=== PATIENT | female | born 1950 | race Caucasian/White ===

== ENCOUNTER 2019-07-06 09:17 | Emergency (ER) | payer MEDICARE, SELFPAY ==
[2019-07-06 09:20] VITALS: BP 92/63; PULSE 92; RESP 18; TEMP 36.9; O2SAT 96; BMI 30.2
[2019-07-06 09:33] VITALS: PULSE 90
--- NOTE | 2019-07-06 09:33 | ED_ITS ---
HPI - Extremity Injury (Upper) General Chief Complaint: Extremity Injury, Upper Stated Complaint: left shoulder/arm swelling/extreme pain fell x7day Time Seen by Provider: 07/06/19 09:20 Source: patient and family Mode of arrival: Ambulatory Limitations: no limitations History of Present Illness HPI narrative: 69-year-old female nonsmoker with history of hypertension and chronic lower extremity pain presents with a family friend after suffering a mechanical fall 1 week ago which she fell onto her left shoulder. Since then she has had increasing pain, particularly with any range of motion and now swelling of the remainder of her arm. She denies any numbness or tingling. She has limited range of motion secondary to pain. MD complaint: injury to: left Onset (ago): day(s) Other injuries: none Handedness: right Place: home Severity: moderate Related Data Home Medications Medication Instructions Recorded Confirmed alprazolam 0.25 mg PO BID 07/06/19 escitalopram oxalate 10 mg PO DAILY 07/06/19 07/06/19 lisinopril 10 mg PO DAILY 07/06/19 07/06/19 oxycodone 10 mg PO PRN PRN 07/06/19 07/06/19 pantoprazole 20 mg PO DAILY 07/06/19 07/06/19 Review of Systems Constitutional Constitutional: Denies chills, Denies fatigue, Denies fever(s), Denies frequent falls, Denies lethargy and Denies weakness Eyes Eyes: Denies change in vision, Denies eye discharge, Denies irritation and Denies loss of vision ENT Ears, Nose, Mouth, and Throat: Denies change in voice, Denies dizziness, Denies neck pain, Denies sore throat and Denies throat swelling Cardiovascular Cardiovascular: Denies chest pain, Denies irregular heart rhythm, Denies lightheadedness, Denies palpitations, Denies dyspnea, Denies dyspnea on exertion and Denies orthopnea Respiratory Respiratory: Denies cough, Denies dyspnea, Denies dyspnea on exertion and Denies wheezing Gastrointestinal Gastrointestinal: Denies abdominal pain, Denies change in bowel habits, Denies diarrhea, Denies nausea and Denies vomiting Genitourinary Genitourinary: Denies hematuria, Denies flank pain, Denies urinary incontinence and Denies urinary urgency Musculoskeletal Musculoskeletal: Denies back pain, Reports joint swelling, Reports limited range of motion, Denies muscle weakness, Denies neck pain, Denies numbness and Denies tingling Integumentary/Breasts Skin/Breast: Denies pruritus, Denies erythema, Denies rash and Denies wounds Neurologic Neurologic: Denies behavioral changes, Denies confusion, Denies dizziness, Denies frequent falls, Denies loss of vision, Denies numbness, Denies tingling and Denies weakness Psychiatric Psychiatric: Denies anxiety, Denies behavioral changes, Denies confusion, Denies depression, Denies homicidal ideation and Denies suicidal ideation Endocrine Endocrine: Denies fatigue, Denies flushing and Denies palpitations Hematologic/Lymphatic Hematologic/Lymphatic: Denies easy bruising Allergic/Immunologic Allergic/Immunologic: Denies urticaria, Denies throat swelling and Denies wheezing PFSH Social History Smoking Status: Never smoker Social History Smoking Status: Never smoker Exam Narrative Exam Narrative: GENERAL: [68] year old patient appears stated age. Well- nourished, well-developed patient, in mild distress. HEAD: Atraumatic. Normocephalic. EYES: Pupils equal round and reactive. Extraocular motions intact. No scleral icterus. No injection or drainage. ENT: Nose without bleeding, purulent drainage. Throat without erythema, tonsillar hypertrophy or exudate. Airway patent. NECK: Trachea midline. Non tender CARDIOVASCULAR: Regular rate and rhythm without murmurs, gallops, or rubs. RESPIRATORY: Clear to auscultation. Breath sounds equal bilaterally. No wheezes, rales, or rhonchi. GASTROINTESTINAL: Abdomen soft, non-tender, nondistended. EXTREMITIES: Decreased range of motion of left upper extremity due to pain, th ere is noted swelling and some ecchymosis along the forearm and wrist but no tenderness to palpation, this is presumably gravity fed from her proximal injury. There is no numbness, tingling or weakness. BACK: Nontender without deformity or crepitance. No flank tenderness. NEURO: AOx3. SKIN: No rash or erythema of visible areas Initial Vital Signs Initial Vital Signs: Vital Signs Temperature 98.4 F 07/06/19 09:20 Pulse Rate 92 H 07/06/19 09:20 Respiratory Rate 18 07/06/19 09:20 Blood Pressure 92/63 07/06/19 09:20 Pulse Oximetry 96 07/06/19 09:20 Procedures Orthopedic Splinting/Casting Injury #1: Side: left Upper Extremity Immobilizer: sling/shoulder immobilizer Post splinting neuro exam: intact Post splinting vascular exam: intact Placed by: Nursing Course Orders Ordered: ED Orders 07/06/19 09:44 XR shoulder RT min 2V Stat Consultations Consultation #1: Andrey to Dr. Kaufman, he has reviewed the images and recommend sling with follow-up Vital Signs Vital signs: Vital Signs - 8 hr 07/06/19 09:20 07/06/19 09:33 07/06/19 11:21 Temperature 98.4 F Pulse Rate 92 H 67 Pulse Rate [Left Radial] 90 Respiratory Rate 18 16 Blood Pressure 92/63 Blood Pressure [Right Arm] 121/70 Pulse Oximetry 96 100 MDM - Extremity Injury (Upper) Imaging Data SHoulder Xray: Radiologist's impression: [address] [address] XRay Report Signed Patient: Fred Rabago [facility]#: [id number] : 8Acct:[id number] Age/Sex: 69 / FDate of Service: 07/06/19 Loc: ED Accession Number: [id number] Procedure: XR shoulder RT min 2V Ordering Provider: Yves Lo D.O. PROCEDURE: XR SHOULDER RT MIN 2V INDICATIONS: fall with shoulder pain TECHNIQUE: 2 views of the shoulder were acquired. COMPARISON: None. FINDINGS: Bones: Comminuted humeral head and neck fracture with mild impaction. Humeral head appears anatomically seated. No suspicious bony lesions. Visualized ribs appear intact. Soft tissues: No suspicious soft tissue calcifications. IMPRESSION: Comminuted humeral head and neck fracture. Dictated by: Nichol Perez M.D. on 07/06/2019 at 10:29 Approved by: Nichol Perez M.D. on 07/06/2019 at 10:30 Discharge Plan Departure Patient Disposition: Home Clinical Impression: Fracture of humerus Qualifiers: Encounter type: initial encounter Humerus Location: proximal Fracture type: closed Fracture alignment: displaced Laterality: left Instructions: DI for Fracture Activity Restrictions/Additional Instructions: *You have been diagnosed with [comminuted proximal humerus fracture] *What to do: *Take medications as directed *Follow up with [facility] in 2-3 days, call for an appointment. Let them know you were seen in the Emergency Department and that we ask that you be seen in follow up *Return to ER if you should have any new, worsening or concerning symptoms Prescriptions: No Action pantoprazole 20 mg tablet,delayed release (DR/EC) 20 mg PO DAILY RF: 0 alprazolam 0.25 mg tablet 0.25 mg PO BID RF: 0 lisinopril 10 mg tablet 10 mg PO DAILY RF: 0 escitalopram oxalate 10 mg tablet 10 mg PO DAILY RF: 0 oxycodone 10 mg tablet 10 mg PO PRN PRN (Reason: pain) RF: 0 Referrals: Tree Nuñez MD [Primary Care Provider] - Patrick Kaufman MD [Physician] -
--- NOTE | 2019-07-06 09:44 | DI.RAD.S_ITS ---
PROCEDURE: XR SHOULDER RT MIN 2V INDICATIONS: fall with shoulder pain TECHNIQUE: 2 views of the shoulder were acquired. COMPARISON: None. FINDINGS: Bones: Comminuted humeral head and neck fracture with mild impaction. Humeral head appears anatomically seated. No suspicious bony lesions. Visualized ribs appear intact. Soft tissues: No suspicious soft tissue calcifications. IMPRESSION: Comminuted humeral head and neck fracture. Dictated by: Nichol Perez M.D. on 07/06/2019 at 10:29 Approved by: Nichol Perez M.D. on 07/06/2019 at 10:30
[2019-07-06 11:21] VITALS: BP 121/70; PULSE 67; RESP 16; O2SAT 100
== END 2019-07-06 11:53 | disposition home or self-care (01) ==
PROVIDERS: Emergency Provider Emergency Medicine; PCP Internal Medicine
DX: S42.292A Other displaced fracture of upper end of left humerus, initial encounter for closed fracture (principal); W18.30XA Fall on same level, unspecified, initial encounter
CPT/HCPCS: 73030; 99282; 99283

== ENCOUNTER → 2020-05-30 12:07 | Outpatient (CLI) | payer MEDICARE, SELFPAY ==
--- NOTE | 2020-05-30 | DI.US.S_ITS ---
PROCEDURE: US PELVIC COMPLETE INDICATIONS: BRCA 2 POSITIVE; BLOATING; FAMILY HX OVARIAN CANCER TECHNIQUE: Real-time scanning was performed of the pelvic organs, with image documentation. Additional endovaginal scanning was necessary due to incomplete visualization of the adnexal and endometrial structures by transabdominal scanning. COMPARISON: [facility], , US ABDOMEN COMPLETE, 05/30/2020, 12:34. FINDINGS: Transabdominal scanning: No pathologic free abdominal or pelvic fluid. Endovaginal scanning: Uterus: Uterus is normal in size at 4.8 x 3 x 2.4 cm. The endometrium measures 5 mm in combined thickness. Tiny atrial cyst. Ovaries: Ovaries are not seen transabdominally or transvaginally. IMPRESSION: 1. Ovaries are not identified. -if clinically indicated further evaluation with MRI pelvis or CT could be performed. 2. Endometrial thickness measures 5 mm and is at the upper limits of normal in this postmenopausal patient. 3. No free fluid seen. Dictated by: Tavares Hobson M.D. on 05/30/2020 at 13:55 Approved by: Tavares Hobson M.D. on 05/30/2020 at 13:58
--- NOTE | 2020-05-30 | DI.US.S_ITS ---
PROCEDURE: US ABDOMEN COMPLETE INDICATIONS: BRCA 2 POSITIVE; BLOATING TECHNIQUE: Real-time scanning was performed of the abdominal and retroperitoneal organs, with image documentation. COMPARISON: [facility], US, US PELVIC COMPLETE, 05/30/2020, 12:53. FINDINGS: Liver: Liver is normal in size and homogeneous in echotexture. Gallbladder: Mildly distended. Non mobile calculus in the gallbladder neck measuring 4 mm. Normal gallbladder wall thickness. No pericholecystic fluid. Negative sonographic Crockett's sign. Biliary ducts: Intrahepatic bile ducts are non-dilated. Extrahepatic bile duct caliber measures 7-8 mm. Normal is 6-7 mm or less in diameter, or 10 mm or less post-cholecystectomy. Pancreas: Visualized portions of the pancreas are sonographically normal. Spleen: Spleen is normal in size and homogeneous in echotexture. Kidneys: Kidneys are normal in size and echotexture. Right kidney measures 10 cm long; left kidney measures 10.6 cm long. No hydronephrosis or nephrolithiasis. No solid masses. Aorta: Visualized aorta is normal in caliber at less than 3 cm. Distal aorta is not well seen. Iliacs: Proximal common iliac arteries are normal in caliber at less than 2.5 cm. IVC: Intrahepatic inferior vena cava is patent. Miscellaneous: No free abdominal fluid. IMPRESSION: 1. Nonmobile gallstone at the gallbladder neck. Mild gallbladder dilatation. No pericholecystic fluid or secondary signs of acute inflammation. -correlate for right upper quadrant pain. 2. No ascites. 3. No hydronephrosis. Dictated by: Tavares Hobson M.D. on 05/30/2020 at 13:51 Approved by: Tavares Hobson M.D. on 05/30/2020 at 13:55
--- NOTE | 2020-05-30 13:47 | DI.MRI.S_ITS ---
Patient Name: ADAM BRYANT date: 1950 Sex: F Attending Physician: Gilberto Indications: Date: 05/30/2020 13:54 At the request of: JOE CRAIG Procedure: MR breast BI wo/w con SCREENING BREAST MRI OF BOTH BREASTS- POST LUMPECTOMY: 05/30/2020 CLINICAL: Routine screening. Comparison is made to exams dated: 09/02/2019 mammogram and 09/01/2018 mammogram - [facility]. Gadolinium contrast calibrated to patient weight was injected. MRI images were obtained. Bilateral background breast enhancement is minimal. PROCEDURE: MR BREAST BI WO/W CON INDICATIONS: BRCA 2 positive; Bloating; Fh ovarian cancer TECHNIQUE: The patient was placed prone in a dedicated breast imaging coil. Precontrast axial STIR and 3D FLASH without fat saturation sequences were obtained. Both before and after bolus injection of contrast, sequential 1-minute axial 3D FLASH with fat saturation sequences for 3 time points, with subtraction images and maximum intensity projections (MIP?s) generated. Delayed sagittal FLASH images with fat saturation were also obtained. Computer-aided detection, including computer algorithm analysis of MRI image data for lesion detection and characterization, pharmacokinetic analysis, with further physician review for interpretation, was performed. COMPARISON: Outside mammograms dated 09/02/2019 and 09/01/2018, performed at the [facility]. FINDINGS: Image quality: Excellent. There is minimal background parenchymal enhancement. Continued Report - Page 2 of 3 Patient Name: ADAM BRYANT date: 1950 Sex: F Attending Physician: Gilberto Indications: Date: 05/30/2020 13:54 At the request of: JOE CRAIG Procedure: MR breast BI wo/w con Right breast: A focus of metallic artifact is seen in the upper outer quadrant of the right breast corresponding to the surgical clip seen on prior mammograms from 09/02/2019. No suspicious mass or abnormal enhancement is seen in the right breast. A few right axillary lymph nodes are noted that are not significantly enlarged. Left breast: Hypointense signal is seen in the left breast in the retroareolar region and the inferior breast corresponding to areas of coarse benign calcification seen on the prior mammograms from 09/02/2019. No suspicious mass or abnormal enhancement is seen in the left breast. There is no significant left axillary lymphadenopathy. Miscellaneous: The included portions of the anterior chest and anterior upper abdomen demonstrate no acute abnormality. IMPRESSION: BENIGN No abnormal mass or suspicious contrast enhancement is seen in either breast. Recommend continued screening. BIRADS 2 COMMENT: The imaging literature indicates that a negative contrast breast MRI examination has a high sensitivity and a moderate specificity for detecting and excluding invasive carcinomas to a detection threshold of 3-5 mm; nonetheless, appropriate clinical and mammographic follow- up are recommended. MRI is not sensitive for detecting DCIS (ductal carcinoma in situ) and may not detect large invasive neoplasms that show only minimal enhancement such as mucinous carcinoma. If there are suspicious calcifications or clinically worrisome palpable masses, then biopsy should still be considered. Invasive neoplasms can be hidden by co-existent and benign enhancement caused by mastitis, hormone therapy effects, radiation therapy, , and recent biopsy or surgery. False positive examinations can occur in a number of circumstances, including breasts that have recently been subject to invasive procedures and those that contain atypical ductal hyperplasia, hormonally stimulated glandular tissue, fat necrosis, or radial scars. A 1 year screening mammogram is recommended. This exam was interpreted at Station ID: [id number]. Electronically Signed By: Cullen gallego/kyle:05/30/2020 17:42:12 Continued Report - Page 3 of 3 Patient Name: ADAM BRYANT date: 1950 Sex: F Attending Physician: Gilberto Indications: Date: 05/30/2020 13:54 At the request of: JOE CRAIG Procedure: MR breast BI wo/w con
== END ==
PROVIDERS: PCP Internal Medicine; Referring Provider Family Medicine; Visit Provider Physician Assistant
DX: Z12.39 Encounter for other screening for malignant neoplasm of breast (principal); Z15.01 Genetic susceptibility to malignant neoplasm of breast; R14.0 Abdominal distension (gaseous); K80.20 Calculus of gallbladder without cholecystitis without obstruction; K82.8 Other specified diseases of gallbladder; Z80.41 Family history of malignant neoplasm of ovary
CPT/HCPCS: 76700; 76830; 76856; 77049; A9579

== ENCOUNTER → 2020-06-23 07:26 | Outpatient (CLI) | payer MEDICARE, SELFPAY ==
--- NOTE | 2020-06-23 | DI.NM.S_ITS ---
PROCEDURE: NM HIDA WITH CCK PHARMACEUTICAL: 4.50 mCi Tc-99m mebrofenin IV; 0.7 mcg CCK IV. INDICATIONS: Unspecified abdominal pain TECHNIQUE: Following intravenous administration of Tc-99m mebrofenin, sequential anterior abdominal images were obtained. To evaluate the contractile response of the gallbladder in response to Cholecystokinin (CCK), sincalide (0.02 ?g/kg) was administered by slow intravenous infusion approximately 60 minutes after the administration of the radiopharmaceutical. Sequential imaging was continued for 30 minutes after the start of CCK infusion. Gallbladder ejection fraction was calculated. COMPARISON: None. FINDINGS: Biliary scan: There is normal tracer uptake and excretion by the liver. There is normal visualization of the intrahepatic ducts, common bile duct, and gallbladder. There is normal tracer transit into the duodenum. CCK stimulation: There is normal contractile response of the gallbladder to CCK infusion. The calculated gallbladder ejection fraction is 85 percent; normal values are above 35%. It has been shown that any patient abdominal pain after CCK administration is related to the rate of CCK injection, rather than to any underlying gallbladder disease (Clinical Nuclear Medicine 2012; 37: 63-70. Journal of Nuclear Medicine 2014; 55: 1-9). IMPRESSION: No evidence of acute cholecystitis. Patent common bile duct. Normal gallbladder ejection fraction. Dictated by: Catracho Greenberg M.D. on 06/23/2020 at 10:34 Approved by: Catracho Greenberg M.D. on 06/23/2020 at 10:46
--- NOTE | 2020-06-23 | DI.CT.S_ITS ---
PROCEDURE: CT PEL WO CON INDICATIONS: Unspecified abdominal pain TECHNIQUE: Noncontrast 3 mm axial sections acquired through the bony pelvis, with coronal and sagittal reformatting. COMPARISON: [facility], , PELVIC COMPLETE, 05/30/2020, 12:53. FINDINGS: Image quality: Excellent. Bones: There are superior and inferior posterior acetabular fixation screws and plate as well as left hip arthroplasty components. There is dystrophic ossification surrounding the posterior aspect of the greater trochanter and to lesser extent anterior to the superolateral acetabular rim. Moderate degenerative changes in the right femoroacetabular joint including acetabular spurring and slight over coverage of the femoral head. Degenerative changes in the facet joints of the lumbar spine with vacuum phenomenon. No suspicious bone lesions to suggest metastatic disease. Soft tissues: The lower aspect of both kidneys is seen and there is a punctate nonobstructing calcification in the lower pole of the right. There is a partially imaged small bowel anastomosis in the central low abdomen. Unenhanced appearance of small and large bowel loops appears otherwise normal. There is a normal appendix. The unenhanced appearance of the right ovary and the structure believed to be the left ovary appears grossly normal without mass. The uterus is present and has a normal unenhanced CT appearance. Urinary bladder is only partially filled and grossly normal given beam hardening artifact from adjacent left hip arthroplasty components. IMPRESSION: 1. No suspicious bone lesions to suggest metastatic disease. 2. Expected findings of left hip arthroplasty and posterior acetabular fixation with slight adjacent dystrophic calcification. 3. Both ovaries are identified and have a normal unenhanced appearance. 4. Nonobstructing right lower pole punctate intrarenal calcification. Dictated by: Dennise Ortiz M.D. on 06/23/2020 at 10:48 Approved by: Dennise Ortiz M.D. on 06/23/2020 at 11:01
== END ==
PROVIDERS: PCP Internal Medicine; Referring Provider Internal Medicine; Visit Provider Physician Assistant
DX: R10.9 Unspecified abdominal pain (principal); R14.0 Abdominal distension (gaseous); K80.20 Calculus of gallbladder without cholecystitis without obstruction; N20.0 Calculus of kidney; Z84.81 Family history of carrier of genetic disease; Z85.3 Personal history of malignant neoplasm of breast; Z96.642 Presence of left artificial hip joint
CPT/HCPCS: 72192; 78227; A9537; J2805

== ENCOUNTER → 2020-08-30 10:40 | Outpatient (CLI) | payer MEDICARE, SELFPAY ==
[2020-08-30 11:10] LABS: COVID19 -Nasal RAPID Negative (Negative)
== END ==
PROVIDERS: PCP Internal Medicine; Visit Provider Obstetrics & Gynecology
DX: Z01.818 Encounter for other preprocedural examination (principal)
CPT/HCPCS: 87635

== ENCOUNTER 2020-08-31 06:41 | Day surgery (SDC) | payer MEDICARE, SELFPAY ==
--- NOTE | 2020-08-31 | PATH_ITS ---
[facility] Accession Number: [id number] . 01 Material submitted: . fallopian tube - BILATERAL TUBES AND OVARIES . 01 Clinical history: . SDC BRCA POSITIVE, HISTORY OF BREAST CANCER PLEASE USE SEE-FIM PROTOCALL . 02 Diagnosis: Bilateral Tubes and Ovaries, Laparoscopic Salpingo-oophorectomies (Left Fallopian Tube and Ovary 4 grams; Right Fallopian Tube and Ovary 4 grams): Ovaries with corpora albicantia; negative for atypia or malignancy. Fallopian tubes with benign paratubal cysts and otherwise no significant histomorphologic abnormality; negative for epithelial atypia or malignancy. No tubal fimbriated tissue identified (entire specimen submitted). [facility] 09/04/2020 1501 Local . 02 Comment: Results (absence of fallopian tube fimbria, specimen entirely submitted) discussed with Dr. Kamara's nurse, Ly, on 09-04-20 at approximately 2:42 p.m. . 02 Electronically signed: . Staci Noland MD, Pathologist NPI- [id number] . 01 Gross description: . Received in formalin, labeled bilateral tubes and ovaries, and consists of two ovaries with attached fallopian tubes weighing 4 grams each. The ovaries average 2.0 x 1.2 x 0.8 cm and display at del[place] cruz smooth external surface. Sectioning reveals a dela cruz ovarian stroma. The fallopian tubes measure 3.0 cm in length by 0.5 cm in diameter and 4.0 cm in length by 0.3 cm in diameter. The serosa is dela cruz-pink and smooth. Sectioning reveals a dela cruz mucosa and a stellate lumen measuring 0.2 cm in diameter. The specimen is entirely submitted. . A1-A3 - ovary. A4 - attached fallopian tube. A5 - attached mesovarium. A6-A7 - other ovary. A8-A10 - attached fallopian tube. A11 - attached mesovarium. (EA:[id number]) /MRV 09/01/2020 1354 Local . 02 Pathologist provided ICD-10: Z80.41 . 02 CPT . 287478 Performed at: 01 [facility] [address] [address], [place], [place] [id number] MD Deni Murphy MD Phone: [phone] Performed at: [address] [facility] [id number] [place] [id number] MD Alexa Kirkland MD Phone: [phone]
[2020-08-31 07:22] VITALS: BP 117/66; PULSE 70; RESP 16; TEMP 36.9; O2SAT 100; BMI 32.6
[2020-08-31 07:30] VITALS: BMI 32.6
[2020-08-31] MEDS: ACETAMINOPHEN 325 MG TABLET 975 MG PO (07:39)
[2020-08-31] MEDS: LACTATED RINGERS 1,000 ML 42 ML IV (07:40)
--- NOTE | 2020-08-31 07:50 | PM.HP.1 ---
History of Present Illness History of Present Illness Date Patient Seen: 08/31/20 Time Patient Seen: 07:50 Chief complaint: SDC Narrative: Patient is a 70-year-old who is BRCA 2 positive. She presents for laparoscopic BSO Patient History Medical History (Updated 08/30/20 @ 15:11 by Ramona Martinez RN) Breast cancer (~1995) Chronic back pain (~2013) Chronic pain Herpes (~1979) Sleep apnea (~2015) Surgical History (Updated 08/30/20 @ 15:11 by Ramona Martinez RN) Anesthesia History of breast surgery (~1995) History of hip replacement (~2013) Family & Social History Family History (Updated 07/18/20 @ 21:33 by Opal Hunter) Father History of heart disease Hyperlipidemia Hypertension Mother Breast cancer Diabetes mellitus History of heart disease Hyperlipidemia Hypertension Social History: household members significant other Tobacco & Substance use: Smoking Status Former smoker alcohol intake never alcohol intake frequency other Substance Use Type does not use Meds Home Medications and Allergies Home Medications Medication Instructions Recorded Confirmed Type alprazolam 0.25 mg PO BID 07/06/19 08/31/20 History lisinopril 10 mg PO DAILY 07/06/19 08/31/20 History oxycodone 10 mg PO PRN PRN 07/06/19 08/31/20 History pantoprazole 20 mg PO DAILY 07/06/19 08/31/20 History aspirin 81 mg tablet,delayed 81 mg PO DAILY 07/18/20 08/31/20 History release cholecalciferol (vitamin D3) PO 07/18/20 07/18/20 History multivitamin 1 tab PO DAILY 07/18/20 08/31/20 History Allergies Allergy/AdvReac Type Severity Reaction Status Date / Time hydromorphone [From Dilaudid] Allergy Verified 07/18/20 09:12 Exam Vital Signs (past 8 hours): - 08/31/20 07:22 Temperature 98.4 F Pulse Rate 70 Respiratory Rate 16 Blood Pressure 117/66 Pulse Oximetry 100 Oxygen Delivery Method Room Air Narrative Exam Narrative: HEENT: No thyromegaly, no anterior cervical or supraclavicular lymphadenopathy. Lungs:Clear to auscultation bilaterally, no wheezes. Cardiovascular: Regular rate and rhythm, no murmurs, rubs, or gallops. Abdomen: No scars. No hepatosplenomegaly. No masses palpable. External genitalia: Normal Vagina: Normal Cervix: Normal Bimanual exam: 6 Week size uterus. Mobile. No adnexal masses or tenderness Rectal: No masses.
--- NOTE | 2020-08-31 08:01 | SUR.OPER ---
Lithotomy on padded OR bed, head on pillow, arms secured on padded arm boards at <90 degrees abduction. Legs secured in padded yellow fins stirrups.
[2020-08-31] MEDS: BUPIVACAINE 0.5% W/ EPI (PF) 30 ML VIAL INJ (08:59)
[2020-08-31 09:10] VITALS: BP 124/71; PULSE 74; RESP 14; TEMP 36.9; O2SAT 94
[2020-08-31 09:15] VITALS: BP 100/39; PULSE 78; RESP 15; O2SAT 97
[2020-08-31 09:22] VITALS: BP 116/64; PULSE 66; RESP 16; O2SAT 96
[2020-08-31 09:25] VITALS: BP 111/72; PULSE 65; RESP 16; O2SAT 97
[2020-08-31 09:34] VITALS: BP 120/41; PULSE 65; RESP 14; TEMP 36.9; O2SAT 100
--- NOTE | 2020-08-31 09:38 | P.OP_ITS ---
Operative Date/Time/Diagnoses Date of procedure: 08/31/20 Time of procedure: 09:38 Pre-op diagnosis: History of breast cancer BRCA 2 positive Post-op diagnosis: same Procedure & Clinicians Procedure: Procedures Operation Date: 08/31/20 07:45 Actual Procedures Side Surgeon p Laparoscopic Salpingo-oophorectomies Bilateral Yu Kamara MD Indications: History of breast cancer BRCA 2 positive Surgeon: Yu Kamara Anesthesia Type: General Operative Notes Findings: Six week size anteverted uterus Bilateral paratubal cysts Normal ovaries Normal liver and appendix Closure Type: primary Specimen(s): left tube & ovary and right tube & ovary Estimated blood loss (mL): 20 Blood products transfused: none Procedure in detail: After informed consent was obtained, the patient was taken to the operating room where she was placed in the dorsal supine position. After adequate general endotracheal anesthesia was achieved, she was placed in the dorsal lithotomy position, and prepped and draped in the usual sterile fashion. A moistened sponge stick was placed into the vagina. Attention was turned to the abdomen where 6 cc of 0.5% Marcaine with epinephrine were injected in the umbilical fold. The Veress needle was placed into the peritoneal cavity, and its placement confirmed by aspiration and drop test. The abdominal cavity was insufflated with 3.0 L of CO2. The Veress needle was removed, and a 5 mm trocar was placed without difficulty. Initial inspection of the pelvis and abdomen revealed the findings noted above. Two other 5 mm incisions were made 4 cm lateral to the midline, after 6 cc of 0.5% Marcaine with epinephrine were i njected. 5 mm trocars were placed under direct visualization. The right tube and ovary were grasped with an atraumatic grasper. With the PlasmaKinetic set at 40 w, the infundibulopelvic ligament was cauterized and cut 3 cm away from the ovary. Hemostasis was achieved. The broad ligament and utero-ovarian ligaments were cauterized and cut. The tube was amputated at the cornua of the uterus. Hemostasis was achieved. There were paratubal cysts on the right which were also amputated using the PlasmaKinetic. All of this was placed into the anterior cul-de-sac. This was all repeated on the left side. Hemostasis was achieved. 6 cc of 0.5% Marcaine with epinephrine were injected through the previous incision above the pubic symphysis. A 10 mm incision was made. A 10 mm trocar was placed under direct visualization. The small endobag was placed through the suprapubic trocar, and the tubes and ovaries and paratubal cysts were placed into the bag. The trocar was removed. The bag was brought up through the incision. The pelvis was copiously irrigated with warm normal saline. There was no bleeding noted. The appendix and liver had been visualized and were normal as well. The instruments were removed from the abdomen. The CO2 was allowed to escape. The trocars were removed. The suprapubic incision was closed on the fascia with 0 Vicryl with the [id number] suture. All of the incisions were closed with 4 0 Biosyn in a subcuticular fashion. Steri-Strips, and Allevyn dressings were placed. The moistened sponge stick was removed from the vagina. Sponge, lap, and instrument counts were correct x2. The patient tolerated the procedure well, and was taken to PACU in stable condition. Complications: none Post-operative Condition: stable Disposition: PACU Plan for aftercare: Home after recovery
--- NOTE | 2020-08-31 09:38 | PM.PREOP ---
Pre-operative Note COVID-19 COVID-19 status: Negative Result date/Date tested (Pos, Neg/Pending): 08/30/20 Interval Note History & Physical reviewed/Exam performed by Physician: Yes Changes to H&P: No H&P completed within 30 days and has changed as indicated here:: 08/31/20
--- NOTE | 2020-08-31 10:19 | SUR.PHASEII ---
Dr. Kamara stated to have patient call her office if she is not able to urinate by 1300. Patient made aware and states she will do that.
== END 2020-08-31 09:56 | disposition home or self-care (01) ==
PROVIDERS: PCP Internal Medicine; Referring Provider Internal Medicine; Visit Provider Obstetrics & Gynecology
PROC: 0UT24ZZ Resection of Bilateral Ovaries, Percutaneous Endoscopic Approach (ICD-10-PCS; CPT 58661; principal; 2020-08-31 07:45)
DX: Z40.02 Encounter for prophylactic removal of ovary(s) (principal); Z85.3 Personal history of malignant neoplasm of breast; Z15.02 Genetic susceptibility to malignant neoplasm of ovary; N83.8 Other noninflammatory disorders of ovary, fallopian tube and broad ligament; I10 Essential (primary) hypertension; G47.33 Obstructive sleep apnea (adult) (pediatric)
CPT/HCPCS: 58661; J1100; J1885; J2250; J2405; J2704; J3010

== ENCOUNTER → 2020-09-14 11:16 | Outpatient (CLI) | payer MEDICARE, SELFPAY ==
--- NOTE | 2020-09-14 | DI.MG.S_ITS ---
BILATERAL DIGITAL SCREENING MAMMOGRAM 3D/2D WITH CAD: 09/14/2020 CLINICAL: Routine screening. Personal history of left breast cancer. Family history of breast cancer. Comparison is made to exams dated: 05/30/2020 breast MRI - [facility], 09/02/2019 mammogram, 09/01/2018 mammogram, and 09/24/2017 mammogram - [facility]. The tissue of both breasts is predominantly fatty. Current study was also evaluated with a Computer Aided Detection (CAD) system. There are benign calcifications in the left breast. There also are benign post operative findings in both breasts. No significant masses, calcifications, or other findings are seen in either breast. There has been no significant interval change. IMPRESSION: BENIGN There is no mammographic evidence of malignancy. A 1 year screening mammogram is recommended. This exam was interpreted at Station ID: [id number]. NOTE: For mammograms, a report in lay terms will be sent to the patient. Approximately 15% of breast malignancies will not be visualized mammographically. In the management of a palpable breast mass, a negative mammogram must not discourage biopsy of a clinically suspicious lesion. Electronically Signed By: Duncan Mims acr/penrad:09/14/2020 12:15:38 letter sent: Normal Exam ACR BI-RADS Category 2: Benign Finding(s) 3342F
== END ==
PROVIDERS: PCP Internal Medicine; Referring Provider Internal Medicine; Visit Provider Internal Medicine
DX: Z12.31 Encounter for screening mammogram for malignant neoplasm of breast (principal); Z85.3 Personal history of malignant neoplasm of breast; Z80.3 Family history of malignant neoplasm of breast
CPT/HCPCS: 77063; 77067

== ENCOUNTER 2021-05-20 08:49 | Emergency (ER) | payer MEDICARE, SELFPAY ==
[2021-05-20 08:55] VITALS: BP 118/61; PULSE 62; RESP 18; TEMP 36.8; O2SAT 98; BMI 28.3
--- NOTE | 2021-05-20 09:06 | DI.RAD.S_ITS ---
PROCEDURE: XR KNEE RT 3V INDICATIONS: Right knee pain/swelling TECHNIQUE: 3 views of the knee were acquired. COMPARISON: None. FINDINGS: Bones: No fractures or dislocations. No suspicious bony lesions. There is mild medial femorotibial joint space narrowing seen, with associated remodeling changes including subchondral sclerosis and osteophyte formation along the jointline. On the sunrise view, there is moderate to severe patellofemoral joint space narrowing seen. Osteophyte formation can be seen along the margins of the patella. Soft tissues: There is mild joint effusion. No suspicious soft tissue calcifications. IMPRESSION: There are osteoarthritic degenerative changes seen, which are worst involving lateral patellofemoral compartment. Dictated by: Wayne Horta M.D. on 05/20/2021 at 8:36 Approved by: Wayne Horta M.D. on 05/20/2021 at 8:37
--- NOTE | 2021-05-20 09:06 | ED.LOWEXIN ---
HPI - Extremity Injury (Lower) General Chief Complaint: Extremity Injury, Lower Stated Complaint: RIGHT KNEE PAIN Time Seen by Provider: 05/20/21 09:00 Source: patient and family Mode of arrival: Wheelchair Limitations: no limitations History of Present Illness HPI Narrative: The patient has pain and swelling in the right knee. Discomfort has been evolving over the last 2 weeks. She is unaware of trauma. She is ambulatory. She has fibromyalgia. She has taken four oxycodone since 4:00 a.m. she also took ibuprofen 100 mg. She has history of arthritis. She has no history of prior issues with the right knee. Related Data Home Medications Medication Instructions Recorded Confirmed alprazolam 0.25 mg tablet 0.25 mg PO BID 07/06/19 08/31/20 lisinopril 10 mg tablet 10 mg PO DAILY 07/06/19 08/31/20 oxycodone 10 mg tablet 10 mg PO PRN PRN 07/06/19 08/31/20 pantoprazole 20 mg tablet,delayed 20 mg PO DAILY 07/06/19 08/31/20 release aspirin 81 mg tablet,delayed 81 mg PO DAILY 07/18/20 08/31/20 release (Adult Aspirin Regimen) cholecalciferol (vitamin D3) PO 07/18/20 07/18/20 multivitamin 1 tab PO DAILY 07/18/20 08/31/20 Previous Rx's Medication Instructions Recorded oxycodone-acetaminophen 5 mg-325 1 tab PO Q4-6H PRN #14 tab 08/31/20 mg tablet (Percocet) Allergies Allergy/AdvReac Type Severity Reaction Status Date / Time hydromorphone [From Dilaudid] Allergy Verified 07/18/20 09:12 Review of Systems Constitutional Constitutional: Reports as per HPI and Denies fever(s) Comments: No recent illness Musculoskeletal Musculoskeletal: Denies numbness, Denies stiffness and Denies tingling Comments: Right knee pain and swelling is noted HPI Neurologic Neurologic: Denies numbness and Denies tingling Comments: No numbness or weakness Patient History Medical History Breast cancer (~1995) Chronic back pain (~2013) Chronic pain Herpes (~1979) Sleep apnea (~2015) Surgical History Anesthesia History of breast surgery (~1995) History of hip replacement (~2013) Family History Father History of heart disease Hyperlipidemia Hypertension Mother Breast cancer Diabetes mellitus History of heart disease Hyperlipidemia Hypertension Social History household members: significant other Smoking Status: Former smoker alcohol intake: never Smoking Status: Former smoker alcohol intake frequency: other Substance Use Type: does not use Exam Initial Vital Signs Initial Vital Signs: Vital Signs Temperature 98.3 F 05/20/21 08:55 Pulse Rate 62 05/20/21 08:55 Respiratory Rate 18 05/20/21 08:55 Blood Pressure 118/61 05/20/21 08:55 Pulse Oximetry 98 05/20/21 08:55 Const General: cooperative and comfortable Skin General: no rashes or lesions noted Neuro General: patient alert, patient awake, patient oriented x3 and no focal motor deficits Extrem Other: No right hip tenderness. Range of motion 0 to 100? in the right knee. Moderate effusion. No erythema or warmth. Anterior drawer sign is negative. No medial or lateral tenderness or laxity. Tenderness is primarily subpatellar nature. No right calf tenderness. The right dorsalis pedis pulse is normal. Psych Appearance: grossly normal Procedures Orthopedic Splinting/Casting Injury #1: Side: right Lower Extremity Injury Location: knee Lower Extremity Immobilizer: knee immobilizer Post splinting neuro exam: intact Post splinting vascular exam: intact Placed by: Nursing Course Orders Ordered: ED Orders 05/20/21 09:06 XR knee RT 3V Stat Vital Signs Vital signs: Vital Signs - 8 hr 05/20/21 08:55 05/20/21 10:36 Temperature 98.3 F Pulse Rate 62 55 L Respiratory Rate 18 Blood Pressure 118/61 119/59 L Pulse Oximetry 98 99 MDM - Extremity Injury (Lower) Imaging Data Right knee x-ray: Radiologist's Impression: Right knee DJD MDM Narrative Medical decision making narrative: The patient is up and ambulatory 1 splinted. I advised she follow up with her PCM, requesting ortho consultation. Discharge Plan Departure Patient Disposition: Home Clinical Impression: Degenerative joint disease of knee, right Qualifiers: Osteoarthritis type: primary Qualified Code(s): M17.11 - Unilateral primary osteoarthritis, right knee Instructions: DI for Osteoarthritis Activity Restrictions/Additional Instructions: Use the knee brace when up and about. Usual current regimen of pain meds as needed. Follow-up with your PCM, Dr. Nuñez, in [place]. I would suggest consultation to Orthopedics, Dr. Feng, in [place]. Prescriptions: No Action cholecalciferol (vitamin D3) PO RF: 0 aspirin [Adult Aspirin Regimen] 81 mg tablet,delayed release (DR/EC) 81 mg PO DAILY RF: 0 multivitamin Tablet 1 tab PO DAILY RF: 0 pantoprazole 20 mg tablet,delayed release (DR/EC) 20 mg PO DAILY RF: 0 alprazolam 0.25 mg tablet 0.25 mg PO BID RF: 0 lisinopril 10 mg tablet 10 mg PO DAILY RF: 0 oxycodone 10 mg tablet 10 mg PO PRN PRN (Reason: pain) RF: 0 oxycodone-acetaminophen [Percocet] 5-325 mg tablet 1 tab PO Q4-6H PRN (Reason: pain) Qty: 14 RF: 0 Referrals: Tree Nuñez MD [Primary Care Provider] -
[2021-05-20 10:36] VITALS: BP 119/59; PULSE 55; O2SAT 99
== END 2021-05-20 10:45 | disposition home or self-care (01) ==
PROVIDERS: Emergency Provider Emergency Medicine; PCP Internal Medicine
DX: M17.11 Unilateral primary osteoarthritis, right knee (principal)
CPT/HCPCS: 73562; 99283

== ENCOUNTER → 2021-06-20 09:27 | Outpatient (CLI) | payer MEDICARE, SELFPAY ==
--- NOTE | 2021-06-20 | DI.MG.S_ITS ---
BILATERAL DIGITAL DIAGNOSTIC MAMMOGRAM 3D/2D: 06/20/2021 CLINICAL: Breast lump. Comparison is made to exams dated: 09/14/2020 mammogram - [facility], 09/02/2019 mammogram, and 09/01/2018 mammogram - [facility]. There are scattered fibroglandular elements in both breasts. There is irregular equal density architectural distortion with an indistinct margin in the right breast at 11 o'clock middle depth. There is a post-surgical scar associated with the architectural distortion. Findings are not significantly changed and correlate with area of palpable abnormality. No other new significant masses, calcifications, or other findings are seen in either breast. IMPRESSION: INCOMPLETE: NEEDS ADDITIONAL IMAGING EVALUATION Post-surgical scar and associated architectural distortion demonstrated in the area of palpable abnormality. An ultrasound is recommended. Ultrasound will be performed immediately following the current exam. This exam was interpreted at Station ID: [id number]. NOTE: For mammograms, a report in lay terms will be sent to the patient. Approximately 15% of breast malignancies will not be visualized mammographically. In the management of a palpable breast mass, a negative mammogram must not discourage biopsy of a clinically suspicious lesion. Electronically Signed By: Deni Sanchez M.D. ddp/:06/20/2021 10:16:55 ACR BI-RADS Category 0: Incomplete [id number]
--- NOTE | 2021-06-20 | DI.US.S_ITS ---
LIMITED ULTRASOUND OF RIGHT BREAST: 06/20/2021 CLINICAL: Palpable right breast lump x 2 weeks. Comparison is made to exams dated: 06/20/2021 mammogram, 09/14/2020 mammogram, 05/30/2020 breast MRI - [facility], 09/02/2019 mammogram, 09/01/2018 mammogram, and 09/24/2017 mammogram - [facility]. Real-time ultrasound of the right breast 11-12 o'clock region was performed on the area of interest. No discrete cystic or solid mass lesion identified in the area of palpable abnormality. IMPRESSION: NEGATIVE There is no sonographic evidence of malignancy. There are no abnormalities seen in the right breast to correspond with the palpable abnormality at 11-12 o'clock, however, clinical followup is recommended. A 1 year screening mammogram is recommended. This exam was interpreted at Station ID: [id number]. Electronically Signed By: Deni Sanchez M.D. ddp/:06/20/2021 10:38:22 letter sent: Clinical Evaluation Ultrasound BI-RADS: 1 Negative
== END ==
PROVIDERS: PCP Internal Medicine; Referring Provider Internal Medicine; Visit Provider Internal Medicine
DX: N63.10 Unspecified lump in the right breast, unspecified quadrant (principal); R92.8 Other abnormal and inconclusive findings on diagnostic imaging of breast
CPT/HCPCS: 76642; 77066; G0279